=== PATIENT | female | born 1980 | race Caucasian/White ===

== ENCOUNTER 2016-08-16 12:10 | Emergency (ER) | payer SELFPAY ==
[2016-08-16] MEDS ORDERED: ONDANSETRON ODT 4 MG ONE (13:14)
[2016-08-16] MEDS ORDERED: ACETAMINOPHEN 325 MG TABLET ONE (15:06)
[2016-08-16 18:20] VITALS: BP 104/61
[2016-08-18 14:56] LABS: BLOOD UREA NITROGEN 7 mg/dL (7-18)
[2016-08-18 14:59] LABS: BLOOD UREA NITROGEN 7 mg/dL (7-18)
== END 2016-08-16 18:22 | disposition home or self-care (01) ==
LOC: ED 12:10
DX: N30.00 Acute cystitis without hematuria (principal); R10.2 Pelvic and perineal pain
CPT/HCPCS: 36415; 76830; 80048; 80069; 81001; 84703; 85025; 87086; 99285

== ENCOUNTER 2016-09-06 13:59 | Emergency (ER) | payer SELFPAY ==
[~2016-09-06] VITALS: Ht 154.9 cm; Wt 65.7 kg
[2016-09-06 14:00] VITALS: BP 117/77
[2016-09-06] MEDS ORDERED: PROPARACAINE OPHTH 0.5%, 15ML ONE (14:16)
[2016-09-06] MEDS ORDERED: FLUORESCEIN OPHTHALMIC 1 MG STRIP ONE (14:16)
== END 2016-09-06 15:49 | disposition home or self-care (01) ==
LOC: ED 14:51
DX: H10.11 Acute atopic conjunctivitis, right eye (principal)
CPT/HCPCS: 99283